=== PATIENT | female | born 2000 | race Caucasian/White ===

== ENCOUNTER 2019-08-21 12:18 | Emergency (ER) | payer BC ==
[2019-08-21 13:29] VITALS: BP 107/64
[2019-08-21 14:17] LABS: Influenza A Molecular Negative (Negative); Influenza B Molecular Negative (Negative)
--- NOTE | 2019-08-21 14:25 | UC ---
Throat Pain/Nasal Ochoa HPI - History of Current Complaint Chief Complaint: UCGeneralIllness Stated Complaint: SORE THROAT,FEVER Hx Last Menstrual Period: now Pain Intensity: 5 - Allergies/Home Medications Allergies/Adverse Reactions: Allergies Allergy/AdvReac Type Severity Reaction Status Date / Time No Known Allergies Allergy Verified 08/21/19 13:29 Home Medications: Home Medications Control 1 tab PO DAILY 05/16/16 [History Confirmed 08/21/19] PMH/Surg Hx/FS Hx/Imm Hx Other History Of: Negative For: HIV, Hepatitis B, Hepatitis C, Anticoagulant Therapy - Surgical History Surgical History: Yes Surgery Procedure, Year, and Place: hematoma removed from lt thigh - Family History Known Family History: Positive: Hypertension, Diabetes - Social History Alcohol Use: None Substance Use Type: None Smoking Status (MU): Never Smoked Tobacco - Immunization History Most Recent Influenza Vaccination: none Most Recent Tetanus Shot: Will get 04/28/13 Vaccination Up to Date: Yes Review of Systems All Other Systems Reviewed And Are Negative: Yes Constitutional: Positive: Fever, Chills ENT: Positive: Sore Throat, Sinus Congestion Respiratory: Positive: Negative. Negative: Cough Cardiovascular: Positive: Negative Gastrointestinal: Positive: Negative Musculoskeletal: Positive: Myalgia Neurological/Mental Status: Positive: Negative Physical Exam - Summary Physical Exam Summary: Vital Signs Reviewed: Yes A+Ox3, no distress, well-appearing Eyes: Conjunctiva Clear ENT: Hearing grossly normal, TM x 2 clear, moist, uvula midline, no exudate, no erythema Neck: Positive: Supple Respiratory: Positive: No respiratory distress, No accessory muscle use + CTA throughout no w/r Cardiovascular: RRR nl s1, s2 no m/r Musculoskeletal Exam: SMITH x 4 without difficulty Neurological: Positive: Alert Psychological: Positive: age appropriate behavior Skin: Positive: no rash, no ecchymosis Vital Signs: Initial Vital Signs Temp 97.6 F 08/21/19 13:25 Pulse 86 08/21/19 13:25 Resp 18 08/21/19 13:25 BP 107/64 08/21/19 13:25 Pulse Ox 100 08/21/19 13:25 Lab Results 08/21/19 08/21/19 Range/Units 14:03 14:05 Influenza A (Rapid) Negative (Negative) Influenza B (Rapid) Negative (Negative) Group A Strep Rapid Negative (Negative) Throat Pain/Nasal Course/Dx - Course Course Of Treatment: Negative rapid strep and flu. Discussed viral illness with patient and instructed to continue some symptomatic treatment. Instructed to follow up if symptoms persist. Patient voiced standing and agree with treatment plan. - Differential Dx/Diagnosis Differential Diagnosis/HQI/PQRI: Influenza, Pharyngitis, Sinusitis, URI Provider Diagnosis: Flu-like symptoms Discharge ED - Sign-Out/Discharge Documenting (check all that apply): Patient Departure All imaging exams completed and their final reports reviewed: No Studies - Discharge Plan Condition: Stable Disposition: HOME Patient Education Materials: Viral Syndrome (ED) Referrals: [facility] [Outside] - If Needed Additional Instructions: Your flu and strep tests were negative today. You may continue to take over the counter cough and cold medications for your cold symptoms. Get plenty of rest and increase your fluids. Follow up with your primary care provider or the [facility] if your symptoms do not resolve within 7 days. - Billing Disposition and Condition Condition: STABLE Disposition: Home
== END 2019-08-21 14:38 | disposition home or self-care (01) ==
LOC: UCEAST 12:18
DX: J02.9 Acute pharyngitis, unspecified (principal); R09.81 Nasal congestion; R09.89 Other specified symptoms and signs involving the circulatory and respiratory systems
CPT/HCPCS: 87651; 99211; G0463

== ENCOUNTER 2019-08-29 17:25 | Emergency (ER) | payer BC ==
[2019-08-29 17:46] VITALS: BP 124/73
--- NOTE | 2019-08-29 18:45 | UC ---
Ear Complaint HPI - HPI Summary HPI Summary: 19 yo female with uri symptoms x 1 1/2 weeks Now with right otalgia no cp or sob + decreased hearing - History of Current Complaint Chief Complaint: UCEar Stated Complaint: EARACHE,SORE THROAT,CONGESTION Time Seen by Provider: 08/29/19 18:30 Hx Obtained From: Patient Hx Last Menstrual Period: 08/2019 Onset/Duration: Gradual Onset, Lasting Days Severity Initially: Moderate Severity Currently: Moderate Pain Intensity: 7 Pain Scale Used: 0-10 Numeric Aggravating Factors: Nothing Alleviating Factors: Nothing Associated Signs/Symptoms: Positive: Hearing Loss, URI Symptoms - Allergies/Home Medications Allergies/Adverse Reactions: Allergies Allergy/AdvReac Type Severity Reaction Status Date / Time No Known Allergies Allergy Verified 08/29/19 17:42 Home Medications: Home Medications Control 1 tab PO DAILY 05/16/16 [History Confirmed 08/29/19] Amoxicillin PO (*) [Amoxicillin 875 MG (*)] 875 mg PO BID #20 tab 08/29/19 [Rx] Dm/Acetaminophen/Doxylamine [Nighttime Cold and Flu Liquid] 1 dose PO ONCE 08/29 [History Confirmed 08/29/19] Pseudoephedrine TAB* [Sudafed TAB*] 30 mg PO ONCE 08/29/19 [History Confirmed ] PMH/Surg Hx/FS Hx/Imm Hx Previously Healthy: Yes Other History Of: Negative For: HIV, Hepatitis B, Hepatitis C, Anticoagulant Therapy - Surgical History Surgical History: Yes Surgery Procedure, Year, and Place: hematoma removed from lt thigh - Family History Known Family History: Positive: Hypertension, Diabetes - Social History Alcohol Use: None Substance Use Type: None Smoking Status (MU): Never Smoked Tobacco - Immunization History Most Recent Influenza Vaccination: none Most Recent Tetanus Shot: Will get 04/28/13 Vaccination Up to Date: Yes Review of Systems All Other Systems Reviewed And Are Negative: Yes Constitutional: Positive: Negative Skin: Positive: Negative Eyes: Positive: Negative ENT: Positive: Ear Ache, Nasal Discharge Respiratory: Positive: Cough Cardiovascular: Positive: Negative Gastrointestinal: Positive: Negative Genitourinary: Positive: Negative Motor: Positive: Negative Neurovascular: Positive: Negative Musculoskeletal: Positive: Negative Neurological/Mental Status: Positive: Negative Psychological: Positive: Negative Physical Exam Triage Information Reviewed: Yes Appearance: Well-Appearing Vital Signs: Initial Vital Signs Temp 98.2 F 08/29/19 17:43 Pulse 104 08/29/19 17:43 Resp 17 08/29/19 17:43 BP 124/73 08/29/19 17:43 Pulse Ox 100 08/29/19 17:43 Vital Signs Reviewed: Yes Eyes: Positive: Conjunctiva Clear ENT: Positive: Nasal congestion, TM bulging - R, TM dull - R, TM red - R, Uvula midline. Negative: Hearing grossly normal - decreased hearing right, TMs normal , Tonsillar swelling, Tonsillar exudate, Trismus, Muffled voice, Hoarse voice, Sinus tenderness Dental Exam: Normal Neck: Positive: Supple, Nontender, No Lymphadenopathy Respiratory: Positive: Lungs clear, Normal breath sounds, No respiratory distress, No accessory muscle use Cardiovascular: Positive: RRR, No Murmur Musculoskeletal: Positive: ROM Intact, No Edema Neurological: Positive: Alert Psychological Exam: Normal Skin Exam: Normal Ear Complaint Course/Dx - Differential Dx/Diagnosis Provider Diagnosis: Right otitis media, Viral URI with cough Discharge ED - Sign-Out/Discharge Documenting (check all that apply): Patient Departure All imaging exams completed and their final reports reviewed: No Studies - Discharge Plan Condition: Stable Disposition: HOME Prescriptions: Amoxicillin PO (*) [Amoxicillin 875 MG (*)] 875 mg PO BID #20 tab Patient Education Materials: Ear Infection (ED) Referrals: [facility] [place] [facility] [Outside] - If Needed Additional Instructions: recheck in 3-4 days if ear pain not improved recheck in 2 week if hearing not better - Billing Disposition and Condition Condition: STABLE Disposition: Home
== END 2019-08-29 18:52 | disposition home or self-care (01) ==
LOC: RADMED 17:25 → UCCORT 17:25 → RADMED 18:52
DX: H66.91 Otitis media, unspecified, right ear (principal); J06.9 Acute upper respiratory infection, unspecified; R05 Cough
CPT/HCPCS: 99212; G0463

== ENCOUNTER 2019-08-31 08:06 | Emergency (ER) | payer BC ==
[2019-08-31 08:23] VITALS: BP 116/70
--- NOTE | 2019-08-31 08:32 | UC ---
Ear Complaint HPI - HPI Summary HPI Summary: Pt presents with c/o sudden onset of right ear drainage and increased pain upon waking this morning. Pt was diagnosed on 08/29/19 with otitis media and given amoxcillin PO Q12h. - History of Current Complaint Chief Complaint: UCEar Stated Complaint: RIGHT EAR DISCHARGE AND PAIN Time Seen by Provider: 08/31/19 08:14 Hx Obtained From: Patient Hx Last Menstrual Period: 08/19/19 ?: No Onset/Duration: Sudden Onset, Lasting Days, Still Present Severity Initially: Moderate Severity Currently: Moderate Pain Intensity: 8 Alleviating Factors: Other (Noted In Comments) - pt has not taken anything for pain Associated Signs/Symptoms: Positive: Hearing Loss, Swelling @ - Allergies/Home Medications Allergies/Adverse Reactions: Allergies Allergy/AdvReac Type Severity Reaction Status Date / Time No Known Allergies Allergy Verified 08/31/19 08:23 Home Medications: Home Medications Control 1 tab PO DAILY 05/16/16 [History Confirmed 08/31/19] Amoxicillin PO (*) [Amoxicillin 875 MG (*)] 875 mg PO BID #20 tab 08/29/19 [Rx Confirmed 08/31/19] Pseudoephedrine TAB* [Sudafed TAB*] 30 mg PO ONCE 08/29/19 [History Confirmed ] PMH/Surg Hx/FS Hx/Imm Hx Previously Healthy: Yes Other History Of: Negative For: HIV, Hepatitis B, Hepatitis C, Anticoagulant Therapy - Surgical History Surgical History: Yes Surgery Procedure, Year, and Place: hematoma removed from lt thigh - Family History Known Family History: Positive: Hypertension, Diabetes - Social History Occupation: Employed Full-time Lives: With Family Alcohol Use: None Substance Use Type: None Smoking Status (MU): Never Smoked Tobacco Have You Smoked in the Last Year: No - Immunization History Most Recent Influenza Vaccination: none Most Recent Tetanus Shot: Will get 04/28/13 Vaccination Up to Date: Yes Review of Systems All Other Systems Reviewed And Are Negative: Yes Constitutional: Positive: Negative Skin: Positive: Negative Eyes: Positive: Negative ENT: Positive: Ear Ache - right, Other - right ear pain and ringing, and muffled hearing. Respiratory: Positive: Negative Cardiovascular: Positive: Negative Gastrointestinal: Positive: Negative Genitourinary: Positive: Negative Motor: Positive: Negative Neurovascular: Positive: Negative Musculoskeletal: Positive: Negative Neurological/Mental Status: Positive: Headache Psychological: Positive: Negative Is Patient Immunocompromised?: No Physical Exam Triage Information Reviewed: Yes Appearance: Ill-Appearing, Pain Distress Vital Signs: Initial Vital Signs Temp 97.8 F 08/31/19 08:20 Pulse 100 08/31/19 08:20 Resp 14 08/31/19 08:20 BP 116/70 08/31/19 08:20 Pulse Ox 99 08/31/19 08:20 Vital Signs Reviewed: Yes Eye Exam: Normal ENT: Positive: Other - dried blood in right ear canal, possible performation in right upper corner of TM ~ at 1 o'clock position. Dental Exam: Normal Neck exam: Normal Respiratory Exam: Normal Cardiovascular: Positive: Tachycardia Musculoskeletal Exam: Normal Neurological Exam: Normal Psychological Exam: Normal Skin Exam: Normal Ear Complaint Course/Dx - Differential Dx/Diagnosis Differential Diagnosis/HQI/PQRI: Otitis Externa, Otitis Media, Perforated TM, URI Provider Diagnosis: Otitis media, serous, TM rupture, Ear drainage right Discharge ED - Sign-Out/Discharge Documenting (check all that apply): Patient Departure All imaging exams completed and their final reports reviewed: No Studies - Discharge Plan Condition: Stable Disposition: HOME Patient Education Materials: Ruptured Eardrum (ED) Forms: *Work Release Referrals: [facility] [place] [facility] [Outside] - If Needed Shawn Montoya MD [Medical Doctor] - As Soon As Possible No Primary Care Phys,NOPCP [Primary Care Provider] - Additional Instructions: Please continue to take the medications as prescribed previously. If your symptoms worsen, please seek care at the closest emergency room. - Billing Disposition and Condition Condition: STABLE Disposition: Home
== END 2019-08-31 08:41 | disposition home or self-care (01) ==
LOC: UCCORT 08:06
DX: H65.91 Unspecified nonsuppurative otitis media, right ear (principal); H72.91 Unspecified perforation of tympanic membrane, right ear; H93.8X1 Other specified disorders of right ear
CPT/HCPCS: 99211; G0463